=== PATIENT | female | born 1955 | race Caucasian/White ===

== ENCOUNTER → 2021-10-09 | Outpatient (CLI) | payer MEDICARE, MEDICAID ==
[2021-10-09 12:18] LABS: HEMATOCRIT 45.5 % (36.0-47.0); MEAN CORPUSCULAR HEMOGLOBIN 25.7 pg (27.0-33.0); MEAN CORPUSCULAR HGB CONC 30.8 g/dl (32.0-36.5); MEAN CORPUSCULAR VOLUME 83.6 fl (80.0-96.0); PLATELET COUNT, AUTOMATED 224 10^3/uL (150-450); RED BLOOD COUNT 5.44 10^6/uL (4.00-5.40); WHITE BLOOD COUNT 5.1 10^3/uL (4.0-10.0)
[2021-10-09 12:54] LABS: ALBUMIN 3.6 GM/DL (3.2-5.2); ALT/SGPT 27 U/L (12-78); BILIRUBIN,TOTAL 0.7 MG/DL (0.2-1.0); BLOOD UREA NITROGEN 12 MG/DL (7-18); CALCIUM LEVEL 9.8 MG/DL (8.8-10.2); CARBON DIOXIDE LEVEL 27 MEQ/L (21-32); CHLORIDE LEVEL 108 MEQ/L (98-107); CHOLESTEROL LEVEL 178 MG/DL (<200); CHOLESTEROL RISK RATIO 2.966 (<5); FREE T3 1.5 PG/ML (2.2-4.0); FREE T4 1.14 NG/DL (0.76-1.46); GLOMERULAR FILTRATION RATE > 60.0 (>45); GLUCOSE, FASTING 141 MG/DL (70-100); HDL CHOLESTEROL 60 MG/DL (>40); LDL CHOLESTEROL 88 MG/DL (<100); MAGNESIUM LEVEL 2.1 MG/DL (1.8-2.4); NON-HDL-C 118 MG/DL; SODIUM LEVEL 140 MEQ/L (136-145); TOTAL PROTEIN 7.6 GM/DL (6.4-8.2); TRIGLYCERIDES LEVEL 152 MG/DL (<150); URIC ACID 4.4 MG/DL (2.6-6.0)
[2021-10-09 12:58] LABS: MALB URINE SIEMENS 8.8 MG/L; MAU/CREAT RATIO 7.9 MCG/MG (0.0-30.0)
[2021-10-09 13:02] LABS: HEMOGLOBIN A1c 6.3 %
== END ==
LOC: M LAB 11:26
PROVIDERS: ATTEND Registered Nurse
DX: I10 Essential (primary) hypertension (principal); E03.9 Hypothyroidism, unspecified; E78.2 Mixed hyperlipidemia; E11.9 Type 2 diabetes mellitus without complications; K21.9 Gastro-esophageal reflux disease without esophagitis

== ENCOUNTER → 2022-05-16 | Outpatient (CLI) | payer MEDICARE, MEDICAID ==
[2022-05-16 19:26] LABS: BLOOD UREA NITROGEN 13 MG/DL (7-18); CREATININE FOR GFR 0.87 MG/DL (0.55-1.30); GLOMERULAR FILTRATION RATE > 60.0 (>45)
== END ==
LOC: M LAB 16:42
PROVIDERS: ATTEND Registered Nurse
DX: Z29.9 Encounter for prophylactic measures, unspecified (principal)

== ENCOUNTER → 2022-05-20 | Outpatient (CLI) | payer OTHER ==
[~2022-05-20] MED LIST: ISOVUE-370 76% 100ML VIAL As Ordered ONE
== END ==
LOC: M RAD 16:09
PROVIDERS: ATTEND Registered Nurse
DX: I80.02 Phlebitis and thrombophlebitis of superficial vessels of left lower extremity (principal)
CPT/HCPCS: 73701; Q9967

== ENCOUNTER → 2022-07-01 | Outpatient (CLI) | payer MEDICARE, OTHER ==
[2022-07-01 12:56] LABS: HEMATOCRIT 47.7 % (36.0-47.0); HEMOGLOBIN 14.6 g/dl (12.0-15.5); MEAN CORPUSCULAR HEMOGLOBIN 25.6 pg (27.0-33.0); MEAN CORPUSCULAR HGB CONC 30.6 g/dl (32.0-36.5); MEAN CORPUSCULAR VOLUME 83.5 fl (80.0-96.0); RED BLOOD COUNT 5.71 10^6/uL (4.00-5.40); WHITE BLOOD COUNT 6.1 10^3/uL (4.0-10.0)
[2022-07-01 13:47] LABS: ALBUMIN 3.7 GM/DL (3.2-5.2); ALT/SGPT 25 U/L (12-78); BLOOD UREA NITROGEN 11 MG/DL (7-18); CALCIUM LEVEL 9.7 MG/DL (8.8-10.2); CARBON DIOXIDE LEVEL 26 MEQ/L (21-32); CHLORIDE LEVEL 106 MEQ/L (98-107); CHOLESTEROL LEVEL 170 MG/DL (<200); CHOLESTEROL RISK RATIO 2.931 (<5); CREATININE FOR GFR 0.78 MG/DL (0.55-1.30); FREE T3 1.5 PG/ML (2.2-4.0); FREE T4 1.25 NG/DL (0.76-1.46); GLOMERULAR FILTRATION RATE > 60.0 (>45); GLUCOSE, FASTING 126 MG/DL (70-100); HDL CHOLESTEROL 58 MG/DL (>40); LDL CHOLESTEROL 74 MG/DL (<100); NON-HDL-C 112 MG/DL; NT-PRO BNP 177 PG/ML (<125); POTASSIUM SERUM 4.8 MEQ/L (3.5-5.1); SODIUM LEVEL 138 MEQ/L (136-145); TOTAL PROTEIN 7.2 GM/DL (6.4-8.2); TRIGLYCERIDES LEVEL 190 MG/DL (<150); URIC ACID 4.9 MG/DL (2.6-6.0)
[2022-07-01 20:10] LABS: HEMOGLOBIN A1c 6.7 %
== END ==
LOC: M LAB 11:23
PROVIDERS: ATTEND Registered Nurse
DX: E11.9 Type 2 diabetes mellitus without complications (principal); I10 Essential (primary) hypertension; R60.9 Edema, unspecified; E89.0 Postprocedural hypothyroidism; E78.2 Mixed hyperlipidemia

== ENCOUNTER → 2022-07-23 | Outpatient (CLI) | payer OTHER | LOC: M WHC 14:07 | PROVIDERS: ATTEND Registered Nurse | DX: Z13.820 Encounter for screening for osteoporosis (principal); M85.851 Other specified disorders of bone density and structure, right thigh; M81.0 Age-related osteoporosis without current pathological fracture ==

== ENCOUNTER → 2022-07-23 | Outpatient (CLI) | payer OTHER | LOC: M PLAIMG 14:50 | PROVIDERS: ATTEND Registered Nurse | DX: Z12.2 Encounter for screening for malignant neoplasm of respiratory organs (principal); Z87.891 Personal history of nicotine dependence ==

== ENCOUNTER → 2022-10-03 | Outpatient (CLI) | payer OTHER | LOC: M PLAIMG 13:29 | PROVIDERS: ATTEND Family Medicine | DX: F07.81 Postconcussional syndrome (principal) ==

== ENCOUNTER 2022-12-03 15:08 | Emergency (ER) | payer OTHER ==
[~2022-12-03] VITALS: Ht 165.1 cm; Wt 86.4 kg
[2022-12-03 15:09] VITALS: BP 136/64
[2022-12-03] MEDS ORDERED: SPIR-10 (16:00)
[2022-12-03] MEDS ORDERED: METF-838 (16:00)
[2022-12-03] MEDS ORDERED: PANT20TA6 (16:00)
[2022-12-03] MEDS ORDERED: ROSU10TA6 (16:00)
[2022-12-03] MEDS ORDERED: GABA-283 (16:00)
[2022-12-03] MEDS ORDERED: LEVO100T5 (16:00)
[2022-12-03] MEDS ORDERED: TOPI25TA10 (16:00)
[2022-12-03] MEDS ORDERED: BACL10TA2 (16:00)
[2022-12-03] MEDS ORDERED: LOSA25TA13 (16:00)
[2022-12-03] MEDS ORDERED: METO1TAB87 (16:00)
[2022-12-03] MEDS ORDERED: ZOLO100T (16:00)
[2022-12-03] MEDS ORDERED: FURO20TA2 (16:00)
[2022-12-03] MEDS ORDERED: AMOX875T2 PO (19:24)
[2022-12-03] MEDS ORDERED: AUGMENTIN 875 MG TAB PO ONE (19:25)
== END 2022-12-03 19:48 | disposition home or self-care (01) ==
LOC: M ED 15:08
DX: K08.89 Other specified disorders of teeth and supporting structures (principal); K02.9 Dental caries, unspecified; Z88.5 Allergy status to narcotic agent; Z79.2 Long term (current) use of antibiotics; Z79.4 Long term (current) use of insulin; Z79.811 Long term (current) use of aromatase inhibitors; Z79.02 Long term (current) use of antithrombotics/antiplatelets; Z79.899 Other long term (current) drug therapy

== ENCOUNTER → 2022-12-04 | Outpatient (CLI) | payer OTHER ==
[~2022-12-04] MED LIST changes: +AMOX875T2 PO; +BACL10TA2; +FURO20TA2; +GABA-283; -ISOVUE-370 76% 100ML VIAL As Ordered ONE; +LEVO100T5; +LOSA25TA13; +METF-838; +METO1TAB87; +PANT20TA6; +ROSU10TA6; +SPIR-10; +TOPI25TA10; +ZOLO100T
== END ==
LOC: M RAD 15:56
PROVIDERS: ATTEND Registered Nurse
DX: M47.9 Spondylosis, unspecified (principal); M85.872 Other specified disorders of bone density and structure, left ankle and foot; M85.852 Other specified disorders of bone density and structure, left thigh; M85.862 Other specified disorders of bone density and structure, left lower leg

== ENCOUNTER → 2023-02-03 | Outpatient (CLI) | payer OTHER ==
[~2023-02-03] MED LIST changes: +ISOVUE-300 61% 100ML VIAL As Ordered ONE; +LIDOCAINE 1% MDV 20ML VIAL As Ordered ONE
== END ==
LOC: M RAD 08:34
PROVIDERS: ATTEND Orthopaedic Surgery
DX: M17.12 Unilateral primary osteoarthritis, left knee (principal); M94.262 Chondromalacia, left knee
CPT/HCPCS: 27369; 73580; 73701; Q9967

== ENCOUNTER → 2023-06-02 | Outpatient (CLI) | payer OTHER ==
[~2023-06-02] MED LIST changes: -GABA-283; +GABA-284; -ISOVUE-300 61% 100ML VIAL As Ordered ONE; -LIDOCAINE 1% MDV 20ML VIAL As Ordered ONE
[2023-06-02 12:36] LABS: HEMATOCRIT 44.8 % (36.0-47.0); HEMOGLOBIN 13.7 g/dl (12.0-15.5); MEAN CORPUSCULAR HEMOGLOBIN 26.3 pg (27.0-33.0); MEAN CORPUSCULAR HGB CONC 30.6 g/dl (32.0-36.5); PLATELET COUNT, AUTOMATED 195 10^3/uL (150-450); RED BLOOD COUNT 5.21 10^6/uL (4.00-5.40); WHITE BLOOD COUNT 4.8 10^3/uL (4.0-10.0)
[2023-06-02 12:42] LABS: TOTAL T3 94.5 NG/DL (60.0-181.0)
[2023-06-02 12:43] LABS: THYROID STIMULATING HORMONE 0.417 uIU/ML (0.55-4.78)
[2023-06-02 12:45] LABS: FREE T4 1.37 NG/DL (0.89-1.76)
[2023-06-02 12:49] LABS: VITAMIN B12 LEVEL 133 PG/ML (211-911)
[2023-06-02 12:51] LABS: ALBUMIN 3.8 G/DL (3.2-5.2); ALKALINE PHOSPHATASE 84 U/L (46-116); ALT/SGPT 15 U/L (7.0-40); AST/SGOT 13 U/L (<34); BILIRUBIN,TOTAL 0.9 MG/DL (0.3-1.2); BLOOD UREA NITROGEN 13 MG/DL (9-23); CALCIUM LEVEL 9.9 MG/DL (8.3-10.6); CARBON DIOXIDE LEVEL 23 MMOL/L (20-31); CHLORIDE LEVEL 107 MMOL/L (98-107); CHOLESTEROL LEVEL 159 MG/DL (<200); CHOLESTEROL RISK RATIO 2.73 (<5); CREATININE FOR GFR 0.64 MG/DL (0.55-1.30); GLOMERULAR FILTRATION RATE > 60.0 (>45); GLUCOSE, FASTING 99 MG/DL (74-106); HDL CHOLESTEROL 58.1 MG/DL (>40); LDL CHOLESTEROL 71.1 MG/DL (<100); MAGNESIUM LEVEL 1.9 MG/DL (1.8-2.4); NON-HDL-C 100.9 MG/DL; POTASSIUM SERUM 4.9 MMOL/L (3.5-5.1); SODIUM LEVEL 138 MMOL/L (136-145); TOTAL PROTEIN 7.1 G/DL (5.7-8.2); TRIGLYCERIDES LEVEL 149 MG/DL (<150)
[2023-06-02 12:52] LABS: HEMOGLOBIN A1c 5.7 % (4.0-6.0)
[2023-06-02 12:56] LABS: URIC ACID 5.3 MG/DL (3.1-7.8)
== END ==
LOC: M LAB 11:23
PROVIDERS: ATTEND Family Medicine
DX: E89.0 Postprocedural hypothyroidism (principal); Z79.899 Other long term (current) drug therapy; I25.10 Atherosclerotic heart disease of native coronary artery without angina pectoris

== ENCOUNTER → 2023-06-02 | Outpatient (CLI) | payer OTHER ==
[2023-06-02 12:53] LABS: BLOOD UREA NITROGEN 13 MG/DL (9-23); CALCIUM LEVEL 9.9 MG/DL (8.3-10.6); CARBON DIOXIDE LEVEL 25 MMOL/L (20-31); CHLORIDE LEVEL 105 MMOL/L (98-107); CHOLESTEROL LEVEL 167 MG/DL (<200); CHOLESTEROL RISK RATIO 2.86 (<5); CREATININE FOR GFR 0.63 MG/DL (0.55-1.30); GLOMERULAR FILTRATION RATE > 60.0 (>45); GLUCOSE, FASTING 96 MG/DL (74-106); HDL CHOLESTEROL 58.3 MG/DL (>40); LDL CHOLESTEROL 76.1 MG/DL (<100); NON-HDL-C 108.7 MG/DL; POTASSIUM SERUM 4.8 MMOL/L (3.5-5.1); SODIUM LEVEL 139 MMOL/L (136-145); TRIGLYCERIDES LEVEL 163 MG/DL (<150)
== END ==
LOC: M LAB 11:20
PROVIDERS: ATTEND Nurse Practitioner Family
DX: I25.10 Atherosclerotic heart disease of native coronary artery without angina pectoris (principal)

== ENCOUNTER → 2023-06-04 | Outpatient (REF) | payer OTHER ==
[2023-06-04 14:20] LABS: CREATININE, URINE 42.2 MG/DL; MALB URINE SIEMENS < 3.0 MG/L; MAU/CREAT RATIO 7.1 MCG/MG (0.0-30.0)
== END ==
LOC: M LAB REF 12:51
PROVIDERS: ATTEND Family Medicine
DX: E89.0 Postprocedural hypothyroidism (principal); J44.9 Chronic obstructive pulmonary disease, unspecified; E11.9 Type 2 diabetes mellitus without complications; I50.20 Unspecified systolic (congestive) heart failure; E78.5 Hyperlipidemia, unspecified; I67.1 Cerebral aneurysm, nonruptured; I11.0 Hypertensive heart disease with heart failure

== ENCOUNTER → 2023-07-14 | Outpatient (REF) | payer OTHER, MEDICAID | LOC: M LAB REF 17:56 | PROVIDERS: ATTEND Otolaryngology | DX: K14.0 Glossitis (principal) ==

== ENCOUNTER 2023-09-07 11:10 | Inpatient (IN) | payer OTHER ==
[~2023-09-07] VITALS: Ht 167.6 cm; Wt 93.2 kg
[2023-09-07] VITALS (35 sets, daily range): BP systolic 76–157; BP diastolic 47–102; TEMP 96.8–98.7; O2SAT 96–100
[~2023-09-07 11:10] MED LIST changes: -BACL10TA2; +BACL10TA2 PO; -FURO20TA2; +FURO20TA2 PO; -GABA-284; +GABA-284 PO; -LEVO100T5; +LEVO100T5 PO; -LOSA25TA13; +LOSA25TA13 PO; -METF-838; +METF-838 PO; -METO1TAB87; +METO1TAB87 PO; -PANT20TA6; +PANT20TA6 PO; -SPIR-10; +SPIR-10 PO; -TOPI25TA10; +TOPI25TA10 PO; -ZOLO100T; +ZOLO100T PO
[2023-09-07] MEDS ORDERED: NS 2,760 ML in IV 1 EA IV ONE (11:45)
[2023-09-07] MEDS ORDERED: NOREPINEPHRINE 4MG IN D5 250ML 4 MG in IV 1 EA IV SCH ×2 (11:45)
[2023-09-07] MEDS ORDERED: ACETAMINOPHEN 650MG SUPP PR ONE (11:45)
[2023-09-07] MEDS ORDERED: PIPERACILLIN/TAZOBACTAM SOD 4.5 GM in D5W MINI-BAG PLUS 50 ML IV ONE (11:45)
[2023-09-07 11:58] LABS: BASO % 0.3 % (0.0-1.0); EOS % 0.1 % (0.0-3.0); HEMOGLOBIN 14.2 g/dl (12.0-15.5); LYMPH # 0.6 10^3/uL (1.5-5.0); LYMPH % 6.1 % (24.0-44.0); MEAN CORPUSCULAR HEMOGLOBIN 26.9 pg (27.0-33.0); MEAN CORPUSCULAR HGB CONC 32.3 g/dl (32.0-36.5); MEAN CORPUSCULAR VOLUME 83.3 fl (80.0-96.0); MONO # 0.6 10^3/uL (0.0-0.8); MONO % 5.7 % (2.0-8.0); NEUTROPHILS # 8.5 10^3/uL (1.5-8.5); NEUTROPHILS % 87.3 % (36.0-66.0); PLATELET COUNT, AUTOMATED 130 10^3/uL (150-450); RED BLOOD COUNT 5.28 10^6/uL (4.00-5.40); WHITE BLOOD COUNT 9.7 10^3/uL (4.0-10.0)
[2023-09-07 12:15] LABS: ABG BASE EXCESS -5.6 (-2.0-2.0); ABG HCO3 18.6 MMOL/L (22.0-26.0); ABG PARTIAL PRESSURE CO2 32.7 mmHg (35.0-45.0); ABG PARTIAL PRESSURE O2 75.8 mmHg (75.0-100.0); ABG STANDARD HCO3 19.8 MMOL/L. (22.0-26.0); ABG TOTAL CO2 19.6 MMOL/L (23.0-31.0); ABG pH (ARTERIAL) 7.372 UNITS (7.350-7.450)
[2023-09-07 12:26] LABS: RSV AMPLIFICATION NEGATIVE (NEGATIVE)
[2023-09-07 12:54] LABS: APPEARANCE, URINE CLOUDY (CLEAR); BACTERIA, URINE AUTO 1+ (NEGATIVE); BILIRUBIN, URINE AUTO NEGATIVE (NEGATIVE); BLOOD, URINE BLOOD 2+ (NEGATIVE); COLOR, URINE YELLOW (YELLOW); GLUCOSE, URINE (UA) AUTO NEGATIVE (NEGATIVE); KETONE, URINE AUTO NEGATIVE (NEGATIVE); LEUKOCYTE ESTERASE, URINE AUTO 3+ (NEGATIVE); MUCUS, URINE SMALL (NEGATIVE); NITRITE, URINE AUTO NEGATIVE (NEGATIVE); PROTEIN, URINE AUTO 2+ mg/dL (NEGATIVE); RBC, URINE AUTO 37 /HPF (0-3); SPECIFIC GRAVITY URINE AUTO 1.009 (1.002-1.035); SQUAMOUS EPITHELIAL CELL UR AU 4 /HPF (0-6); UROBILINOGEN, URINE AUTO 0.2 mg/dL (0.0-2.0); WBC, URINE AUTO TNTC /HPF (0-3)
[2023-09-07] MEDS ORDERED: ASPIRIN 81MG CHEW TABLET PO ONE (13:00)
[2023-09-07] MEDS ORDERED: NITROGLYCERIN 2% OINT 1 GM *U/D* PKT TOP ONE (13:35)
[2023-09-07] MEDS ORDERED: HEPARIN DRIP 25,000 UNITS in IV 1 EA IV SCH (13:55)
[2023-09-07] MEDS ORDERED: HEPARIN SOD (PORCINE) 5000UNITS/ML 1ML VIAL/SYRINGE IV ONE (13:55)
[2023-09-07 14:24] LABS: INR 1.36; PARTIAL THROMBOPLASTIN TIME 32.7 SECONDS (24.8-34.2); PROTHROMBIN TIME 16.3 SECONDS (12.5-14.5)
[2023-09-07 14:38] LABS: CK-MB VALUE MASS 12.4 NG/ML (<3.6)
[2023-09-07 14:41] LABS: ALBUMIN 2.5 G/DL (3.2-5.2); BILIRUBIN,DIRECT 0.9 MG/DL (<0.4); BILIRUBIN,TOTAL 1.3 MG/DL (0.3-1.2); CALCIUM LEVEL 7.5 MG/DL (8.3-10.6); CREATININE FOR GFR 1.61 MG/DL (0.55-1.30); GLOMERULAR FILTRATION RATE 34.1 (>45); MB/CK RELATIVE INDEX 5.63 (< OR =4); POTASSIUM SERUM 4.5 MMOL/L (3.5-5.1); TOTAL PROTEIN 5.5 G/DL (5.7-8.2)
[2023-09-07 14:42] LABS: THYROID STIMULATING HORMONE 0.595 uIU/ML (0.55-4.78)
[2023-09-07] MEDS: LR 1,000 ML IV SCH ×2 (14:42→22:32)
[2023-09-07 14:46] LABS: PROCALCITONIN 4.16 ng/ml
[2023-09-07] MEDS: NOREPINEPHRINE 4MG IN D5 250ML 4 MG in IV 1 EA IV SCH ×6 (15:13→20:11)
[2023-09-07] MEDS ORDERED: HYDROCORTISONE 100MG/2ML VIAL IV ONE (16:00)
[2023-09-07] MEDS ORDERED: HEPARIN SOD (PORCINE) 5000UNITS/ML 1ML VIAL/SYRINGE IV PRN (16:20)
[2023-09-07] MEDS ORDERED: VANCOMYCIN HCL 1,000 MG, VIAL MATE ADAPTER 1 EACH in D5W 250 ML IV SCH (17:00)
[2023-09-07] MEDS: VASOPRESSIN INJ 20 UNITS in NS 500 ML IV SCH (17:44)
[2023-09-07] MEDS: PIPERACILLIN/TAZOBACTAM SOD 4.5 GM in D5W MINI-BAG PLUS 50 ML IV SCH (17:49)
[2023-09-07] MEDS: IPRATROPIUM 0.5MG/ALBUTEROL 2.5MG INH SOL UD 3ML (DUONEB) NEB SCH ×3 (17:57→23:28)
[2023-09-07 18:33] LABS: CK-MB VALUE MASS 27.9 NG/ML (<3.6)
[2023-09-07 18:38] LABS: MB/CK RELATIVE INDEX 7.11 (< OR =4)
[2023-09-07] MEDS ORDERED: VANCOMYCIN HCL 750 MG, VIAL MATE ADAPTER 1 EACH in D5W 250 ML IV ONE (20:00)
[2023-09-07] MEDS ORDERED: PROA1AER2 INH (20:01)
[2023-09-07] MEDS ORDERED: TRAM37.53 PO (20:01)
[2023-09-07] MEDS ORDERED: ROSU20TA61 PO (20:01)
[2023-09-07] MEDS ORDERED: GLUCAGON INJ 1MG VIAL SC PRN (21:00)
[2023-09-07] MEDS ORDERED: DEXTROSE 50% 50ML SYRINGE IV PRN (21:00)
[2023-09-07] MEDS ORDERED: GLUCOSE 4GM CHEW TABLET PO PRN (21:00)
[2023-09-07] MEDS ORDERED: HOME MED LIST COMPLETE! XX SCH (21:55)
[2023-09-08] VITALS (97 sets, daily range): BP systolic 80–141; BP diastolic 50–78; PULSE 116; TEMP 96.5–101.4; O2SAT 75–100
[2023-09-08] MEDS: PIPERACILLIN/TAZOBACTAM SOD 4.5 GM in D5W MINI-BAG PLUS 50 ML IV SCH ×4 (00:25→17:04)
[2023-09-08] MEDS: VASOPRESSIN INJ 20 UNITS in NS 500 ML IV SCH ×4 (01:31→18:27)
[2023-09-08] MEDS: IPRATROPIUM 0.5MG/ALBUTEROL 2.5MG INH SOL UD 3ML (DUONEB) NEB SCH ×6 (03:23→23:31)
[2023-09-08 04:26] LABS: BASO % 0.1 % (0.0-1.0); HEMATOCRIT 37.6 % (36.0-47.0); LYMPH # 0.6 10^3/uL (1.5-5.0); MEAN CORPUSCULAR HGB CONC 32.2 g/dl (32.0-36.5); MEAN CORPUSCULAR VOLUME 83.9 fl (80.0-96.0); MONO # 1.1 10^3/uL (0.0-0.8); NEUTROPHILS % 90.4 % (36.0-66.0); PLATELET COUNT, AUTOMATED 189 10^3/uL (150-450); RED BLOOD COUNT 4.48 10^6/uL (4.00-5.40); WHITE BLOOD COUNT 18.8 10^3/uL (4.0-10.0)
[2023-09-08 04:28] LABS: HEMOGLOBIN 12.1 g/dl (12.0-15.5)
[2023-09-08 04:54] LABS: CK-MB VALUE MASS 82.7 NG/ML (<3.6)
[2023-09-08 04:57] LABS: ALBUMIN 2.5 G/DL (3.2-5.2); BILIRUBIN,TOTAL 0.9 MG/DL (0.3-1.2); CALCIUM LEVEL 7.8 MG/DL (8.3-10.6); CREATININE FOR GFR 1.06 MG/DL (0.55-1.30); GLOMERULAR FILTRATION RATE 55.2 (>45); MAGNESIUM LEVEL 1.6 MG/DL (1.8-2.4); POTASSIUM SERUM 4.6 MMOL/L (3.5-5.1); TOTAL PROTEIN 5.7 G/DL (5.7-8.2)
[2023-09-08 04:59] LABS: MB/CK RELATIVE INDEX 8.58 (< OR =4)
[2023-09-08] MEDS: BUDESONIDE 0.5 MG/2 ML INHALATION SUSPENSION INH SCH ×2 (08:00→20:12)
[2023-09-08] MEDS: PANTOPRAZOLE 40MG VIAL IV SCH (08:49)
[2023-09-08] MEDS: ASPIRIN 81MG ENTERIC TABLET PO SCH (08:49)
[2023-09-08] MEDS: LR 1,000 ML IV SCH (08:50)
[2023-09-08] MEDS: VANCOMYCIN HCL 750 MG, VIAL MATE ADAPTER 1 EACH in D5W 250 ML IV SCH ×2 (08:52→20:32)
[2023-09-08] MEDS: HEPARIN DRIP 25,000 UNITS in IV 1 EA IV SCH (12:48)
[2023-09-08 14:14] LABS: HEMATOCRIT 34.2 % (36.0-47.0); HEMOGLOBIN 11.2 g/dl (12.0-15.5); MEAN CORPUSCULAR HEMOGLOBIN 27.1 pg (27.0-33.0); MEAN CORPUSCULAR HGB CONC 32.7 g/dl (32.0-36.5); MEAN CORPUSCULAR VOLUME 82.6 fl (80.0-96.0); PLATELET COUNT, AUTOMATED 127 10^3/uL (150-450); RED BLOOD COUNT 4.14 10^6/uL (4.00-5.40); WHITE BLOOD COUNT 10.2 10^3/uL (4.0-10.0)
[2023-09-08 14:33] LABS: MB/CK RELATIVE INDEX 7.49 (< OR =4)
[2023-09-08] MEDS: ACETAMINOPHEN TAB 650MG DOSE (2X325MG) PO PRN (16:37)
[2023-09-08] MEDS ORDERED: NITROGLYCERIN 0.4MG SUBL TABLET SL PRN (16:45)
[2023-09-08] MEDS ORDERED: MORPHINE 2 MG/ML 1ML VIAL IV ONE (16:55)
[2023-09-08 17:28] LABS: BASO % 0.2 % (0.0-1.0); HEMATOCRIT 35.4 % (36.0-47.0); HEMOGLOBIN 11.3 g/dl (12.0-15.5); LYMPH # 0.6 10^3/uL (1.5-5.0); LYMPH % 5.5 % (24.0-44.0); MEAN CORPUSCULAR HEMOGLOBIN 26.3 pg (27.0-33.0); MEAN CORPUSCULAR HGB CONC 31.9 g/dl (32.0-36.5); MEAN CORPUSCULAR VOLUME 82.3 fl (80.0-96.0); MONO # 0.8 10^3/uL (0.0-0.8); MONO % 7.3 % (2.0-8.0); NEUTROPHILS # 9.9 10^3/uL (1.5-8.5); NEUTROPHILS % 86.4 % (36.0-66.0); PLATELET COUNT, AUTOMATED 133 10^3/uL (150-450); WHITE BLOOD COUNT 11.5 10^3/uL (4.0-10.0)
[2023-09-08 18:09] LABS: ALBUMIN 2.3 G/DL (3.2-5.2); ALKALINE PHOSPHATASE 78 U/L (46-116); ALT/SGPT 42 U/L (7.0-40); AST/SGOT 131 U/L (<34); BILIRUBIN,TOTAL 0.7 MG/DL (0.3-1.2); BLOOD UREA NITROGEN 17 MG/DL (9-23); CALCIUM LEVEL 7.6 MG/DL (8.3-10.6); CARBON DIOXIDE LEVEL 19 MMOL/L (20-31); CHLORIDE LEVEL 102 MMOL/L (98-107); CPK CREATINE PHOSPHOKINASE 513 U/L (34-145); CREATININE FOR GFR 0.85 MG/DL (0.55-1.30); GLOMERULAR FILTRATION RATE > 60.0 (>45); GLUCOSE, FASTING 193 MG/DL (74-106); MB/CK RELATIVE INDEX 5.45 (< OR =4); POTASSIUM SERUM 3.8 MMOL/L (3.5-5.1); SODIUM LEVEL 133 MMOL/L (136-145); TOTAL PROTEIN 5.4 G/DL (5.7-8.2)
[2023-09-08] MEDS ORDERED: MAG SULF 1GM/100ML (MAG RUN) 1 GM in IV 1 EA IV SCH (19:00)
[2023-09-09] VITALS (94 sets, daily range): BP systolic 89–150; BP diastolic 46–75; PULSE 95; TEMP 97–101.9; O2SAT 94–100
[2023-09-09] MEDS: PIPERACILLIN/TAZOBACTAM SOD 4.5 GM in D5W MINI-BAG PLUS 50 ML IV SCH ×2 (00:08→05:37)
[2023-09-09] MEDS: NOREPINEPHRINE 4MG IN D5 250ML 4 MG in IV 1 EA IV SCH ×4 (00:09→13:09)
[2023-09-09] MEDS: VASOPRESSIN INJ 20 UNITS in NS 500 ML IV SCH ×2 (03:12→11:30)
[2023-09-09] MEDS: IPRATROPIUM 0.5MG/ALBUTEROL 2.5MG INH SOL UD 3ML (DUONEB) NEB SCH ×5 (03:16→20:26)
[2023-09-09 06:08] LABS: BASO % 0.2 % (0.0-1.0); HEMATOCRIT 33.5 % (36.0-47.0); HEMOGLOBIN 10.7 g/dl (12.0-15.5); LYMPH # 0.9 10^3/uL (1.5-5.0); LYMPH % 6.5 % (24.0-44.0); MEAN CORPUSCULAR HEMOGLOBIN 26.4 pg (27.0-33.0); MEAN CORPUSCULAR HGB CONC 31.9 g/dl (32.0-36.5); MEAN CORPUSCULAR VOLUME 82.7 fl (80.0-96.0); MONO % 7.5 % (2.0-8.0); NEUTROPHILS # 11.5 10^3/uL (1.5-8.5); NEUTROPHILS % 85.1 % (36.0-66.0); PLATELET COUNT, AUTOMATED 159 10^3/uL (150-450); RED BLOOD COUNT 4.05 10^6/uL (4.00-5.40); WHITE BLOOD COUNT 13.6 10^3/uL (4.0-10.0)
[2023-09-09 06:37] LABS: CPK CREATINE PHOSPHOKINASE 333 U/L (34-145)
[2023-09-09 06:38] LABS: ALBUMIN 2.1 G/DL (3.2-5.2); ALKALINE PHOSPHATASE 79 U/L (46-116); ALT/SGPT 34 U/L (7.0-40); AST/SGOT 85 U/L (<34); BILIRUBIN,TOTAL 0.9 MG/DL (0.3-1.2); BLOOD UREA NITROGEN 11 MG/DL (9-23); CALCIUM LEVEL 7.5 MG/DL (8.3-10.6); CARBON DIOXIDE LEVEL 20 MMOL/L (20-31); CHLORIDE LEVEL 98 MMOL/L (98-107); CK-MB VALUE MASS 15.3 NG/ML (<3.6); CREATININE FOR GFR 0.73 MG/DL (0.55-1.30); GLOMERULAR FILTRATION RATE > 60.0 (>45); GLUCOSE, FASTING 181 MG/DL (74-106); MAGNESIUM LEVEL 1.6 MG/DL (1.8-2.4); MB/CK RELATIVE INDEX 4.59 (< OR =4); POTASSIUM SERUM 3.7 MMOL/L (3.5-5.1); SODIUM LEVEL 127 MMOL/L (136-145); TOTAL PROTEIN 5.2 G/DL (5.7-8.2)
[2023-09-09] MEDS ORDERED: MAG SULF 1GM/100ML (MAG RUN) 1 GM in IV 1 EA IV ONE (08:00)
[2023-09-09] MEDS: ACETAMINOPHEN TAB 650MG DOSE (2X325MG) PO PRN (08:40)
[2023-09-09] MEDS: ASPIRIN 81MG ENTERIC TABLET PO SCH (08:41)
[2023-09-09] MEDS: VANCOMYCIN HCL 750 MG, VIAL MATE ADAPTER 1 EACH in D5W 250 ML IV SCH (08:41)
[2023-09-09] MEDS: PANTOPRAZOLE 40MG VIAL IV SCH (08:41)
[2023-09-09] MEDS: BUDESONIDE 0.5 MG/2 ML INHALATION SUSPENSION INH SCH ×2 (09:02→20:26)
[2023-09-09] MEDS: ROSUVASTATIN 10 MG TAB (CRESTOR) PO SCH (12:44)
[2023-09-09] MEDS: cefTRIAXone SOD 1 GM in D5W MINI-BAG PLUS 50 ML IV SCH (12:45)
[2023-09-09] MEDS: CLOPIDOGREL 75 MG TAB PO SCH (12:45)
[2023-09-09] MEDS: HEPARIN DRIP 25,000 UNITS in IV 1 EA IV SCH (13:09)
[2023-09-10] VITALS (76 sets, daily range): BP systolic 79–116; BP diastolic 44–76; TEMP 97.1–99.1; O2SAT 98–100
[2023-09-10] MEDS: IPRATROPIUM 0.5MG/ALBUTEROL 2.5MG INH SOL UD 3ML (DUONEB) NEB SCH ×4 (00:19→12:00)
[2023-09-10] MEDS: ACETAMINOPHEN TAB 650MG DOSE (2X325MG) PO PRN (00:55)
[2023-09-10 04:55] LABS: BASO % 0.3 % (0.0-1.0); EOS % 0.1 % (0.0-3.0); HEMATOCRIT 33.3 % (36.0-47.0); HEMOGLOBIN 10.7 g/dl (12.0-15.5); LYMPH # 0.9 10^3/uL (1.5-5.0); LYMPH % 8.5 % (24.0-44.0); MEAN CORPUSCULAR HEMOGLOBIN 26.5 pg (27.0-33.0); MEAN CORPUSCULAR HGB CONC 32.1 g/dl (32.0-36.5); MEAN CORPUSCULAR VOLUME 82.4 fl (80.0-96.0); NEUTROPHILS # 8.9 10^3/uL (1.5-8.5); NEUTROPHILS % 81.4 % (36.0-66.0); PLATELET COUNT, AUTOMATED 188 10^3/uL (150-450); RED BLOOD COUNT 4.04 10^6/uL (4.00-5.40); WHITE BLOOD COUNT 10.9 10^3/uL (4.0-10.0)
[2023-09-10 05:17] LABS: CPK CREATINE PHOSPHOKINASE 141 U/L (34-145)
[2023-09-10 05:18] LABS: ALKALINE PHOSPHATASE 83 U/L (46-116); ALT/SGPT 26 U/L (7.0-40); AST/SGOT 50 U/L (<34); BILIRUBIN,TOTAL 0.9 MG/DL (0.3-1.2); BLOOD UREA NITROGEN 8 MG/DL (9-23); CALCIUM LEVEL 8.2 MG/DL (8.3-10.6); CARBON DIOXIDE LEVEL 25 MMOL/L (20-31); CHLORIDE LEVEL 108 MMOL/L (98-107); CK-MB VALUE MASS 5.6 NG/ML (<3.6); CREATININE FOR GFR 0.72 MG/DL (0.55-1.30); GLOMERULAR FILTRATION RATE > 60.0 (>45); GLUCOSE, FASTING 146 MG/DL (74-106); MB/CK RELATIVE INDEX 3.97 (< OR =4); POTASSIUM SERUM 3.2 MMOL/L (3.5-5.1); SODIUM LEVEL 141 MMOL/L (136-145); TOTAL PROTEIN 5.2 G/DL (5.7-8.2)
[2023-09-10] MEDS ORDERED: POTASSIUM CHLORIDE 10MEQ SR TABLET PO ONE (07:00)
[2023-09-10] MEDS: BUDESONIDE 0.5 MG/2 ML INHALATION SUSPENSION INH SCH (07:50)
[2023-09-10] MEDS: CLOPIDOGREL 75 MG TAB PO SCH (08:03)
[2023-09-10] MEDS: ASPIRIN 81MG ENTERIC TABLET PO SCH (08:03)
[2023-09-10] MEDS: PANTOPRAZOLE 40MG VIAL IV SCH (08:03)
[2023-09-10] MEDS: ROSUVASTATIN 10 MG TAB (CRESTOR) PO SCH (08:04)
[2023-09-10] MEDS: HEPARIN DRIP 25,000 UNITS in IV 1 EA IV SCH (08:06)
[2023-09-10] MEDS ORDERED: LACTATED RINGER'S 1000 ML IV ONE (11:40)
[2023-09-10] MEDS: cefTRIAXone SOD 1 GM in D5W MINI-BAG PLUS 50 ML IV SCH (12:08)
[2023-09-10] MEDS ORDERED: IPRATROPIUM 0.5MG/ALBUTEROL 2.5MG INH SOL UD 3ML (DUONEB) NEB PRN (13:15)
[2023-09-11] VITALS (11 sets, daily range): BP systolic 94–114; BP diastolic 51–59; TEMP 96.9–97; O2SAT 98–99
[2023-09-11] MEDS: HEPARIN DRIP 25,000 UNITS in IV 1 EA IV SCH ×2 (02:50→12:35)
[2023-09-11 05:12] LABS: HEMATOCRIT 31.3 % (36.0-47.0); HEMOGLOBIN 10.1 g/dl (12.0-15.5); MEAN CORPUSCULAR HEMOGLOBIN 26.9 pg (27.0-33.0); MEAN CORPUSCULAR HGB CONC 32.3 g/dl (32.0-36.5); MEAN CORPUSCULAR VOLUME 83.5 fl (80.0-96.0); PLATELET COUNT, AUTOMATED 184 10^3/uL (150-450); RED BLOOD COUNT 3.75 10^6/uL (4.00-5.40); WHITE BLOOD COUNT 8.8 10^3/uL (4.0-10.0)
[2023-09-11 05:23] LABS: INR 1.18; PROTHROMBIN TIME 14.7 SECONDS (12.5-14.5)
[2023-09-11 05:25] LABS: PARTIAL THROMBOPLASTIN TIME 82.4 SECONDS (24.8-34.2)
[2023-09-11 07:34] LABS: BLOOD UREA NITROGEN 7 MG/DL (9-23); CALCIUM LEVEL 8.1 MG/DL (8.3-10.6); CARBON DIOXIDE LEVEL 23 MMOL/L (20-31); CHLORIDE LEVEL 111 MMOL/L (98-107); CREATININE FOR GFR 0.66 MG/DL (0.55-1.30); GLOMERULAR FILTRATION RATE > 60.0 (>45); GLUCOSE, FASTING 110 MG/DL (74-106); POTASSIUM SERUM 3.7 MMOL/L (3.5-5.1); SODIUM LEVEL 144 MMOL/L (136-145)
[2023-09-11] MEDS: ROSUVASTATIN 10 MG TAB (CRESTOR) PO SCH (08:10)
[2023-09-11] MEDS: CLOPIDOGREL 75 MG TAB PO SCH (08:10)
[2023-09-11] MEDS: PANTOPRAZOLE 40MG VIAL IV SCH (08:10)
[2023-09-11] MEDS: ASPIRIN 81MG ENTERIC TABLET PO SCH (08:10)
[2023-09-11] MEDS: cefTRIAXone SOD 1 GM in D5W MINI-BAG PLUS 50 ML IV SCH (12:04)
[2023-09-12 15:15] VITALS: BP 122/62; TEMP 97; O2SAT 100
[2023-09-12] MEDS ORDERED: ONDANSETRON 4MG 2ML VIAL IV PRN (15:20)
[2023-09-12] MEDS ORDERED: MOM 30ML SUSPENSION UDC PO PRN (15:20)
[2023-09-12] MEDS ORDERED: BISACODYL 5MG TAB PO PRN (15:20)
[2023-09-12] MEDS ORDERED: MIRALAX *UNIT DOSE* 17GM PACKET PO PRN (15:20)
[2023-09-12] MEDS ORDERED: SENOKOT S TAB PO PRN (15:20)
[2023-09-12] MEDS ORDERED: HEPARIN SOD (PORCINE) 5000UNITS/ML 1ML VIAL/SYRINGE IV PRN (16:35)
[2023-09-12] MEDS ORDERED: HEPARIN SOD (PORCINE) 5000UNITS/ML 1ML VIAL/SYRINGE IV ONE (17:00)
[2023-09-12] MEDS ORDERED: HEPARIN DRIP 25,000 UNITS in IV 1 EA IV SCH (17:00)
[2023-09-12] MEDS ORDERED: cefTRIAXone SOD 1 GM in D5W MINI-BAG PLUS 50 ML IV SCH (17:00)
[2023-09-12 17:29] LABS: HEMATOCRIT 34.4 % (36.0-47.0); HEMOGLOBIN 10.7 g/dl (12.0-15.5); MEAN CORPUSCULAR HEMOGLOBIN 26.4 pg (27.0-33.0); MEAN CORPUSCULAR HGB CONC 31.1 g/dl (32.0-36.5); MEAN CORPUSCULAR VOLUME 84.7 fl (80.0-96.0); PLATELET COUNT, AUTOMATED 258 10^3/uL (150-450); RED BLOOD COUNT 4.06 10^6/uL (4.00-5.40); WHITE BLOOD COUNT 8.9 10^3/uL (4.0-10.0)
[2023-09-12 17:55] LABS: CPK CREATINE PHOSPHOKINASE 66 U/L (34-145)
[2023-09-12] MEDS ORDERED: LACTOBACILLUS ACIDOPHILUS CAP (BACID) PO SCH (18:00)
[2023-09-12 18:07] LABS: PROCALCITONIN 0.24 ng/ml
[2023-09-12 18:09] LABS: ALBUMIN 2.3 G/DL (3.2-5.2); ALKALINE PHOSPHATASE 86 U/L (46-116); ALT/SGPT 66 U/L (7.0-40); AST/SGOT 87 U/L (<34); BILIRUBIN,TOTAL 0.6 MG/DL (0.3-1.2); BLOOD UREA NITROGEN 7 MG/DL (9-23); CALCIUM LEVEL 8.5 MG/DL (8.3-10.6); CARBON DIOXIDE LEVEL 22 MMOL/L (20-31); CHLORIDE LEVEL 107 MMOL/L (98-107); CK-MB VALUE MASS 1.2 NG/ML (<3.6); CREATININE FOR GFR 0.59 MG/DL (0.55-1.30); GLOMERULAR FILTRATION RATE > 60.0 (>45); GLUCOSE, FASTING 95 MG/DL (74-106); MB/CK RELATIVE INDEX 1.81 (< OR =4); POTASSIUM SERUM 3.7 MMOL/L (3.5-5.1); SODIUM LEVEL 139 MMOL/L (136-145)
[2023-09-12 18:32] LABS: BASOPHILS 1 % (0-1); EOSINOPHILS 4 % (0-3); LYMPHOCYTES 13 % (16-44); METAMYELOCYTES 3 % (0-0); MONOCYTES 4 % (0-5); NEUTROPHILS 74 % (28-66); PLATELET ESTIMATE NORMAL (NORMAL)
[2023-09-12] MEDS: ACETAMINOPHEN TAB 650MG DOSE (2X325MG) PO PRN (18:33)
[2023-09-12 19:06] LABS: ERYTHROCYTE SEDIMENTATION RATE > 130 mm/hr (0-30)
[2023-09-12 19:38] VITALS: BP 101/57; TEMP 97.5; O2SAT 99
[2023-09-12] MEDS: ATORVASTATIN 20 MG TAB PO SCH (20:48)
[2023-09-12] MEDS ORDERED: MORPHINE 2 MG/ML 1ML VIAL IV ONE (21:00)
[2023-09-12 23:19] VITALS: BP 124/58; TEMP 97.7; O2SAT 96
[2023-09-13 03:13] VITALS: BP 124/65; TEMP 97; O2SAT 96
[2023-09-13 05:32] LABS: HEMATOCRIT 33.7 % (36.0-47.0); HEMOGLOBIN 10.6 g/dl (12.0-15.5); MEAN CORPUSCULAR HEMOGLOBIN 26.8 pg (27.0-33.0); MEAN CORPUSCULAR HGB CONC 31.5 g/dl (32.0-36.5); MEAN CORPUSCULAR VOLUME 85.1 fl (80.0-96.0); PLATELET COUNT, AUTOMATED 273 10^3/uL (150-450); RED BLOOD COUNT 3.96 10^6/uL (4.00-5.40); WHITE BLOOD COUNT 8.9 10^3/uL (4.0-10.0)
[2023-09-13 05:53] LABS: BLOOD UREA NITROGEN 6 MG/DL (9-23); CALCIUM LEVEL 8.2 MG/DL (8.3-10.6); CARBON DIOXIDE LEVEL 26 MMOL/L (20-31); CHLORIDE LEVEL 105 MMOL/L (98-107); CHOLESTEROL LEVEL 114 MG/DL (<200); CHOLESTEROL RISK RATIO 3.81 (<5); CREATININE FOR GFR 0.69 MG/DL (0.55-1.30); GLOMERULAR FILTRATION RATE > 60.0 (>45); GLUCOSE, FASTING 105 MG/DL (74-106); HDL CHOLESTEROL 29.9 MG/DL (>40); LDL CHOLESTEROL 62.1 MG/DL (<100); NON-HDL-C 84.1 MG/DL; POTASSIUM SERUM 3.5 MMOL/L (3.5-5.1); SODIUM LEVEL 139 MMOL/L (136-145); TRIGLYCERIDES LEVEL 110 MG/DL (<150)
[2023-09-13 06:07] LABS: ATYPICAL LYMPH 2 % (0-5); BASOPHILS 1 % (0-1); EOSINOPHILS 7 % (0-3); LYMPHOCYTES 9 % (16-44); MONOCYTES 5 % (0-5); NEUTROPHILS 74 % (28-66); PLATELET ESTIMATE NORMAL (NORMAL)
[2023-09-13 06:08] LABS: ANISOCYTOSIS 1+
[2023-09-13 06:09] LABS: HEMOGLOBIN A1c 5.5 % (4.0-6.0)
[2023-09-13 08:19] VITALS: BP 115/64; TEMP 96.9; O2SAT 98
[2023-09-13 08:40] LABS: INR 1.08; PROTHROMBIN TIME 13.7 SECONDS (12.5-14.5)
[2023-09-13] MEDS: AUGMENTIN 875 MG TAB PO SCH ×2 (09:28→20:01)
[2023-09-13] MEDS: LACTOBACILLUS ACIDOPHILUS CAP (BACID) PO SCH ×4 (09:28→20:01)
[2023-09-13] MEDS: ASPIRIN 81MG CHEW TABLET PO SCH (09:28)
[2023-09-13] MEDS: CLOPIDOGREL 75 MG TAB PO SCH (09:28)
[2023-09-13 10:50] LABS: CK-MB VALUE MASS 1.3 NG/ML (<3.6)
[2023-09-13 10:52] LABS: CPK CREATINE PHOSPHOKINASE 55 U/L (34-145); MB/CK RELATIVE INDEX 2.36 (< OR =4)
[2023-09-13 16:16] VITALS: BP 108/58; TEMP 96.8; O2SAT 97
[2023-09-13 19:32] VITALS: BP 96/52; TEMP 97.4; O2SAT 99
[2023-09-13] MEDS: ATORVASTATIN 20 MG TAB PO SCH (20:01)
[2023-09-14 03:24] VITALS: BP 122/65; TEMP 97.7; O2SAT 99
[2023-09-14 05:33] LABS: HEMATOCRIT 32.4 % (36.0-47.0); HEMOGLOBIN 10.2 g/dl (12.0-15.5); MEAN CORPUSCULAR HEMOGLOBIN 26.3 pg (27.0-33.0); MEAN CORPUSCULAR HGB CONC 31.5 g/dl (32.0-36.5); MEAN CORPUSCULAR VOLUME 83.5 fl (80.0-96.0); PLATELET COUNT, AUTOMATED 316 10^3/uL (150-450); RED BLOOD COUNT 3.88 10^6/uL (4.00-5.40)
[2023-09-14 06:06] LABS: BLOOD UREA NITROGEN 6 MG/DL (9-23); CALCIUM LEVEL 8.1 MG/DL (8.3-10.6); CARBON DIOXIDE LEVEL 24 MMOL/L (20-31); CHLORIDE LEVEL 108 MMOL/L (98-107); CREATININE FOR GFR 0.59 MG/DL (0.55-1.30); GLOMERULAR FILTRATION RATE > 60.0 (>45); GLUCOSE, FASTING 109 MG/DL (74-106); POTASSIUM SERUM 3.9 MMOL/L (3.5-5.1); SODIUM LEVEL 142 MMOL/L (136-145)
[2023-09-14 06:27] LABS: ANISOCYTOSIS 1+; ATYPICAL LYMPH 6 % (0-5); BLAST CELLS 1 % (0-0); EOSINOPHILS 4 % (0-3); LYMPHOCYTES 16 % (16-44); MONOCYTES 4 % (0-5); NEUTROPHILS 66 % (28-66); PLATELET ESTIMATE NORMAL (NORMAL)
[2023-09-14 06:28] LABS: MICROCYTOSIS 1+; OVALOCYTES 1+; POIKILOCYTOSIS 1+
[2023-09-14 07:52] VITALS: BP 110/68; TEMP 97.8; O2SAT 100
[2023-09-14] MEDS: LACTOBACILLUS ACIDOPHILUS CAP (BACID) PO SCH ×4 (08:02→21:09)
[2023-09-14] MEDS: ACETAMINOPHEN TAB 650MG DOSE (2X325MG) PO PRN ×2 (08:02→21:09)
[2023-09-14] MEDS: CLOPIDOGREL 75 MG TAB PO SCH (08:02)
[2023-09-14] MEDS: ASPIRIN 81MG CHEW TABLET PO SCH (08:02)
[2023-09-14] MEDS: AUGMENTIN 875 MG TAB PO SCH ×2 (08:02→21:09)
[2023-09-14] MEDS: ENOXAPARIN 40MG/0.4ML SYRINGE (J1650 PER 10MG) SC SCH (11:32)
[2023-09-14 11:35] VITALS: BP 132/63; TEMP 96.8; O2SAT 97
[2023-09-14 13:01] LABS: CK-MB VALUE MASS < 1.0 NG/ML (<3.6)
[2023-09-14 13:02] LABS: CPK CREATINE PHOSPHOKINASE 41 U/L (34-145); MB/CK RELATIVE INDEX 2.43 (< OR =4)
[2023-09-14 16:11] VITALS: BP 108/62; TEMP 97.7; O2SAT 96
[2023-09-14 17:10] VITALS: BP 113/55; TEMP 97.5; O2SAT 99
[2023-09-14] MEDS: ATORVASTATIN 20 MG TAB PO SCH (21:10)
[2023-09-14 21:17] VITALS: BP 125/60; TEMP 97.7; O2SAT 99
[2023-09-15 04:39] VITALS: BP 124/59; TEMP 97; O2SAT 100
[2023-09-15 06:10] LABS: HEMATOCRIT 35.2 % (36.0-47.0); HEMOGLOBIN 10.7 g/dl (12.0-15.5); MEAN CORPUSCULAR HGB CONC 30.4 g/dl (32.0-36.5); MEAN CORPUSCULAR VOLUME 85.6 fl (80.0-96.0); PLATELET COUNT, AUTOMATED 316 10^3/uL (150-450); RED BLOOD COUNT 4.11 10^6/uL (4.00-5.40); WHITE BLOOD COUNT 8.6 10^3/uL (4.0-10.0)
[2023-09-15 06:39] LABS: BLOOD UREA NITROGEN < 5 MG/DL (9-23); CALCIUM LEVEL 8.5 MG/DL (8.3-10.6); CARBON DIOXIDE LEVEL 26 MMOL/L (20-31); CHLORIDE LEVEL 108 MMOL/L (98-107); GLOMERULAR FILTRATION RATE > 60.0 (>45); GLUCOSE, FASTING 110 MG/DL (74-106); POTASSIUM SERUM 4.1 MMOL/L (3.5-5.1); SODIUM LEVEL 142 MMOL/L (136-145)
[2023-09-15 07:14] LABS: ATYPICAL LYMPH 25 % (0-5); EOSINOPHILS 3 % (0-3); LYMPHOCYTES 4 % (16-44); MONOCYTES 6 % (0-5); NEUTROPHILS 62 % (28-66); NUCLEATED RED BLOOD CELL 14 % (0-0)
[2023-09-15 07:20] LABS: PLATELET ESTIMATE NORMAL (NORMAL)
[2023-09-15 07:21] LABS: HYPOCHROMASIA 1+; POLYCHROMASIA 1+
[2023-09-15] MEDS: ASPIRIN 81MG CHEW TABLET PO SCH (08:30)
[2023-09-15] MEDS: CLOPIDOGREL 75 MG TAB PO SCH (08:30)
[2023-09-15] MEDS: LACTOBACILLUS ACIDOPHILUS CAP (BACID) PO SCH ×2 (08:30→13:07)
[2023-09-15] MEDS: AUGMENTIN 875 MG TAB PO SCH (08:30)
[2023-09-15] MEDS: ENOXAPARIN 40MG/0.4ML SYRINGE (J1650 PER 10MG) SC SCH (08:31)
[2023-09-15] MEDS ORDERED: AMOX875T2 PO (12:45)
[2023-09-15] MEDS ORDERED: ATOR1TAB21 PO (12:45)
[2023-09-15] MEDS ORDERED: ASPI81CH8 PO (12:45)
[2023-09-15] MEDS ORDERED: CLOP75TA2 PO (12:45)
== END 2023-09-15 14:35 | disposition home or self-care (01) | DRG 871 ==
LOC: EDBD 11:10 → M ED 11:10 → M ED INP 14:11 → M ICU 14:11 → UNDODISIN 09-11 12:56 → M PCU 09-12 12:43 → M MSPAV 09-14 17:03
PROVIDERS: ADMIT Internal Medicine Critical Care Medicine; ATTEND Student in an Organized Health Care Education/Training Program
PROC: 05HM33Z Insertion of Infusion Device into Right Internal Jugular Vein, Percutaneous Approach (ICD-10-PCS; principal; 2023-09-07)
DX: A41.9 Sepsis, unspecified organism (principal); R65.21 Severe sepsis with septic shock; I21.4 Non-ST elevation (NSTEMI) myocardial infarction; I21.A1 Myocardial infarction type 2; G92.8 Other toxic encephalopathy; N10 Acute pyelonephritis; I69.354 Hemiplegia and hemiparesis following cerebral infarction affecting left non-dominant side; E87.1 Hypo-osmolality and hyponatremia; I50.32 Chronic diastolic (congestive) heart failure; E03.9 Hypothyroidism, unspecified; E11.9 Type 2 diabetes mellitus without complications; I11.0 Hypertensive heart disease with heart failure; B96.1 Klebsiella pneumoniae [K. pneumoniae] as the cause of diseases classified elsewhere; E87.6 Hypokalemia; I25.10 Atherosclerotic heart disease of native coronary artery without angina pectoris; Z95.1 Presence of aortocoronary bypass graft; E78.5 Hyperlipidemia, unspecified; I27.20 Pulmonary hypertension, unspecified; K21.9 Gastro-esophageal reflux disease without esophagitis; Z88.8 Allergy status to other drugs, medicaments and biological substances; Z88.5 Allergy status to narcotic agent; Z79.82 Long term (current) use of aspirin; Z79.899 Other long term (current) drug therapy; Z95.0 Presence of cardiac pacemaker; Z86.718 Personal history of other venous thrombosis and embolism; M81.0 Age-related osteoporosis without current pathological fracture; I08.3 Combined rheumatic disorders of mitral, aortic and tricuspid valves; F32.A Depression, unspecified; Z87.891 Personal history of nicotine dependence

== ENCOUNTER → 2023-10-01 | Outpatient (CLI) | payer OTHER ==
[~2023-10-01] MED LIST changes: +ASPI81CH8 PO; +ATOR1TAB21 PO; +CLOP75TA2 PO; +PROA1AER2 INH; +ROSU20TA61 PO; +TRAM37.53 PO
[2023-10-01 15:01] LABS: ALBUMIN 3.1 G/DL (3.2-5.2); BILIRUBIN,DIRECT 0.3 MG/DL (<0.4); BILIRUBIN,TOTAL 0.8 MG/DL (0.3-1.2); TOTAL PROTEIN 7.4 G/DL (5.7-8.2)
== END ==
LOC: M LAB 13:46
PROVIDERS: ATTEND Registered Nurse
DX: B37.2 Candidiasis of skin and nail (principal)

== ENCOUNTER 2023-10-13 08:22 | Inpatient (IN) | payer OTHER ==
[2023-10-13] VITALS (41 sets, daily range): BP systolic 70–128; BP diastolic 48–63; TEMP 97.5–102.3; O2SAT 90–100
[~2023-10-13] VITALS: Ht 162.6 cm; Wt 91.4 kg
[2023-10-13] MEDS ORDERED: ASPIRIN 81MG ENTERIC TABLET PO SCH (09:00)
[2023-10-13] MEDS ORDERED: PANTOPRAZOLE 20 MG TAB PO SCH (09:00)
[2023-10-13] MEDS ORDERED: CLOPIDOGREL 75 MG TAB PO SCH (09:00)
[2023-10-13] MEDS ORDERED: TOPIRAMATE (TopAMAX) 25 MG TAB PO SCH (09:00)
[2023-10-13] MEDS ORDERED: PIPERACILLIN/TAZOBACTAM SOD 4.5 GM in D5W MINI-BAG PLUS 50 ML IV ONE (09:05)
[2023-10-13] MEDS ORDERED: cefTRIAXone SOD 2 GM in D5W MINI-BAG PLUS 50 ML IV ONE (09:05)
[2023-10-13] MEDS ORDERED: NS 2,750 ML in IV 1 EA IV ONE (09:20)
[2023-10-13 09:52] LABS: HEMATOCRIT 38.4 % (36.0-47.0); HEMOGLOBIN 12.3 g/dl (12.0-15.5); MEAN CORPUSCULAR HEMOGLOBIN 26.3 pg (27.0-33.0); MEAN CORPUSCULAR VOLUME 82.2 fl (80.0-96.0); PLATELET COUNT, AUTOMATED 281 10^3/uL (150-450); RED BLOOD COUNT 4.67 10^6/uL (4.00-5.40)
[2023-10-13 10:00] LABS: AMORPHOUS SEDIMENT SMALL (NEGATIVE); APPEARANCE, URINE TURBID (CLEAR); BACTERIA, URINE AUTO 3+ (NEGATIVE); BILIRUBIN, URINE AUTO NEGATIVE (NEGATIVE); BLOOD, URINE BLOOD 1+ (NEGATIVE); COLOR, URINE AMBER (YELLOW); GLUCOSE, URINE (UA) AUTO NEGATIVE (NEGATIVE); KETONE, URINE AUTO NEGATIVE (NEGATIVE); LEUKOCYTE ESTERASE, URINE AUTO 2+ (NEGATIVE); MUCUS, URINE SMALL (NEGATIVE); NITRITE, URINE AUTO NEGATIVE (NEGATIVE); PROTEIN, URINE AUTO 2+ mg/dL (NEGATIVE); RBC, URINE AUTO 7 /HPF (0-3); SPECIFIC GRAVITY URINE AUTO 1.018 (1.002-1.035); SQUAMOUS EPITHELIAL CELL UR AU 18 /HPF (0-6); UROBILINOGEN, URINE AUTO 0.2 mg/dL (0.0-2.0); WBC, URINE AUTO 85 /HPF (0-3)
[2023-10-13 10:04] LABS: WHITE BLOOD COUNT 36.1 10^3/uL (4.0-10.0)
[2023-10-13 10:18] LABS: RSV AMPLIFICATION NEGATIVE (NEGATIVE)
[2023-10-13 10:55] LABS: ATYPICAL LYMPH 4 % (0-5); LYMPHOCYTES 3 % (16-44); MONOCYTES 3 % (0-5); NEUTROPHILS 89 % (28-66)
[2023-10-13] MEDS ORDERED: ASPIRIN 81MG CHEW TABLET PO ONE (10:55)
[2023-10-13 10:56] LABS: PLATELET ESTIMATE NORMAL (NORMAL)
[2023-10-13 11:21] LABS: CK-MB VALUE MASS < 1.0 NG/ML (<3.6)
[2023-10-13 11:23] LABS: AMYLASE 36 U/L (30-118); CPK CREATINE PHOSPHOKINASE 116 U/L (34-145); MB/CK RELATIVE INDEX 0.86 (< OR =4)
[2023-10-13 11:28] LABS: ALBUMIN 2.1 G/DL (3.2-5.2); ALKALINE PHOSPHATASE 63 U/L (46-116); ALT/SGPT 12 U/L (7.0-40); AST/SGOT 14 U/L (<34); BILIRUBIN,DIRECT 0.3 MG/DL (<0.4); BILIRUBIN,TOTAL 0.6 MG/DL (0.3-1.2); BLOOD UREA NITROGEN 43 MG/DL (9-23); CALCIUM LEVEL 7.9 MG/DL (8.3-10.6); CARBON DIOXIDE LEVEL 17 MMOL/L (20-31); CHLORIDE LEVEL 102 MMOL/L (98-107); CREATININE FOR GFR 2.25 MG/DL (0.55-1.30); GLOMERULAR FILTRATION RATE 23.2 (>45); GLUCOSE, FASTING 109 MG/DL (74-106); POTASSIUM SERUM 4.7 MMOL/L (3.5-5.1); SODIUM LEVEL 131 MMOL/L (136-145); TOTAL PROTEIN 5.3 G/DL (5.7-8.2)
[2023-10-13 11:40] LABS: INR 1.38; PROTHROMBIN TIME 16.6 SECONDS (12.5-14.5)
[2023-10-13 11:41] LABS: PARTIAL THROMBOPLASTIN TIME 24.9 SECONDS (24.8-34.2)
[2023-10-13] MEDS ORDERED: NOREPINEPHRINE 4MG IN D5 250ML 4 MG in IV 1 EA IV SCH ×2 (11:45)
[2023-10-13] MEDS ORDERED: ALBUTEROL SULFATE 2.5MG/0.5ML INH NEB SOLN NEB PRN (11:55)
[2023-10-13] MEDS ORDERED: ONDANSETRON 4MG 2ML VIAL IV ONE (11:55)
[2023-10-13] MEDS ORDERED: LR 1,000 ML IV SCH (12:20)
[2023-10-13] MEDS ORDERED: CLOP75TA2 PO (12:28)
[2023-10-13] MEDS ORDERED: CLOT1CRE71 TOP (12:28)
[2023-10-13] MEDS ORDERED: ATOR1TAB21 PO (12:28)
[2023-10-13] MEDS ORDERED: NYST10006 TOP (12:28)
[2023-10-13] MEDS ORDERED: ASPI81CH33 PO (12:28)
[2023-10-13] MEDS ORDERED: VANCOMYCIN ORAL SOL 250MG/5ML ORAL SYRINGE PO SCH (12:30)
[2023-10-13] MEDS ORDERED: FLUC150T9 PO (12:31)
[2023-10-13] MEDS ORDERED: LACTATED RINGER'S 1000 ML IV ONE ×2 (14:00→16:50)
[2023-10-13] MEDS ORDERED: GLUCAGON INJ 1MG VIAL SC PRN (15:00)
[2023-10-13] MEDS ORDERED: DEXTROSE 50% 50ML SYRINGE IV PRN (15:00)
[2023-10-13] MEDS ORDERED: GLUCOSE 4GM CHEW TABLET PO PRN (15:00)
[2023-10-13] MEDS: FIDAXOMICIN 200 MG TAB (DIFICID) PO SCH ×2 (15:09→22:09)
[2023-10-13] MEDS: LEVOTHYROXINE 100MCG TABLET (0.1MG) PO SCH (15:09)
[2023-10-13] MEDS ORDERED: LR 500 ML IV ONE (16:35)
[2023-10-13] MEDS ORDERED: VASOPRESSIN INJ 20 UNITS in NS 499 ML IV SCH ×2 (16:35→17:00)
[2023-10-13 17:02] LABS: CALCIUM LEVEL 7.5 MG/DL (8.3-10.6); CREATININE FOR GFR 1.99 MG/DL (0.55-1.30); GLOMERULAR FILTRATION RATE 26.7 (>45); POTASSIUM SERUM 4.7 MMOL/L (3.5-5.1)
[2023-10-13 17:43] LABS: ABG BASE EXCESS -11.6 (-2.0-2.0); ABG HCO3 14.2 MMOL/L (22.0-26.0); ABG O2 SATURATION 98.5 % (95.0-99.0); ABG PARTIAL PRESSURE CO2 31.9 mmHg (35.0-45.0); ABG PARTIAL PRESSURE O2 125.7 mmHg (75.0-100.0); ABG STANDARD HCO3 15.4 MMOL/L. (22.0-26.0); ABG TOTAL CO2 15.2 MMOL/L (23.0-31.0); ABG pH (ARTERIAL) 7.266 UNITS (7.350-7.450)
[2023-10-13] MEDS: metroNIDAZOLE 500 MG in IV 1 EA IV SCH (17:44)
[2023-10-13] MEDS: INSULIN LISPRO (NovoLOG) PER UNIT SC SCH (18:00)
[2023-10-13] MEDS: NOREPINEPHRINE 4MG IN D5 250ML 4 MG in IV 1 EA IV SCH ×4 (20:15→22:20)
[2023-10-13] MEDS ORDERED: ATORVASTATIN 20 MG TAB PO SCH (21:00)
[2023-10-13] MEDS ORDERED: ACETAMINOPHEN *IV* 1,000 MG in IV 1 EA IV ONE (21:50)
[2023-10-13] MEDS: HEPARIN SOD (PORCINE) 5000UNITS/ML 1ML VIAL/SYRINGE SC SCH (22:10)
[2023-10-14] VITALS (62 sets, daily range): BP systolic 39–128; BP diastolic 25–89; TEMP 99.1–101.7; O2SAT 96–99
[2023-10-14] MEDS: metroNIDAZOLE 500 MG in IV 1 EA IV SCH (01:00)
[2023-10-14] MEDS: NOREPINEPHRINE 4MG IN D5 250ML 4 MG in IV 1 EA IV SCH ×6 (01:23→08:41)
[2023-10-14] MEDS: INSULIN LISPRO (NovoLOG) PER UNIT SC SCH ×2 (05:07)
[2023-10-14] MEDS: LEVOTHYROXINE 100MCG TABLET (0.1MG) PO SCH (05:07)
[2023-10-14] MEDS: HEPARIN SOD (PORCINE) 5000UNITS/ML 1ML VIAL/SYRINGE SC SCH (05:07)
[2023-10-14 05:28] LABS: HEMATOCRIT 37.2 % (36.0-47.0); HEMOGLOBIN 11.7 g/dl (12.0-15.5); MEAN CORPUSCULAR HEMOGLOBIN 26.1 pg (27.0-33.0); MEAN CORPUSCULAR HGB CONC 31.5 g/dl (32.0-36.5); PLATELET COUNT, AUTOMATED 293 10^3/uL (150-450); RED BLOOD COUNT 4.48 10^6/uL (4.00-5.40)
[2023-10-14 05:30] LABS: WHITE BLOOD COUNT 43.4 10^3/uL (4.0-10.0)
[2023-10-14 05:41] LABS: BILIRUBIN,TOTAL 0.5 MG/DL (0.3-1.2); CALCIUM LEVEL 7.4 MG/DL (8.3-10.6); CREATININE FOR GFR 2.33 MG/DL (0.55-1.30); GLOMERULAR FILTRATION RATE 22.2 (>45); POTASSIUM SERUM 4.2 MMOL/L (3.5-5.1); TOTAL PROTEIN 5.3 G/DL (5.7-8.2)
[2023-10-14] MEDS ORDERED: SODIUM BICARBONATE 150 MEQ in STERILE WATER LITER BAG 1,000 ML IV SCH (06:30)
[2023-10-14] MEDS ORDERED: HYDROCORTISONE 100MG/2ML VIAL IV ONE (06:40)
[2023-10-14] MEDS ORDERED: NS 500 ML IV ONE ×2 (06:50→07:40)
[2023-10-14] MEDS ORDERED: VASOPRESSIN INJ 20 UNITS in NS 499 ML IV SCH (08:00)
[2023-10-14] MEDS ORDERED: HEPARIN SOD (PORCINE) 5000UNITS/ML 1ML VIAL/SYRINGE IV PRN (08:55)
[2023-10-14] MEDS ORDERED: LACTATED RINGER'S 1000 ML IV ONE (08:55)
[2023-10-14] MEDS ORDERED: ACETAMINOPHEN *IV* 1,000 MG in IV 1 EA IV PRN (09:00)
[2023-10-14] MEDS ORDERED: ADENOSINE 6MG 2ML INJECTION As Ordered ONE ×2 (09:02→09:06)
[2023-10-14] MEDS ORDERED: SODIUM BICARBONATE 8.4% INJ 50ML SYRINGE ONE (09:29)
[2023-10-14] MEDS ORDERED: AMIODARONE 150MG/3ML VIAL ONE (09:29)
[2023-10-14] MEDS ORDERED: CALCIUM CHLORIDE 10% 1 GM/10 ML SYR ONE (09:29)
[2023-10-14] MEDS ORDERED: EPINEPHrine 1MG/10ML SYRINGE 1.5IN ONE (09:29)
[2023-10-14] MEDS ORDERED: HEPARIN SOD (PORCINE) 5000UNITS/ML 1ML VIAL/SYRINGE IV ONE (10:00)
[2023-10-14] MEDS ORDERED: PHENYLEPHRINE HCL INJ 50 MG in D5W 495 ML IV SCH (10:00)
[2023-10-14] MEDS ORDERED: HEPARIN DRIP 25,000 UNITS in IV 1 EA IV SCH (10:00)
[2023-10-14] MEDS ORDERED: HYDROCORTISONE 100MG/2ML VIAL IV SCH (12:00)
== END 2023-10-14 09:30 | disposition expired | DRG 871 ==
LOC: M ED 08:22 → EDBD 08:22 → M ED INP 11:53 → ENRESERV 12:33 → M ICU 12:59
PROVIDERS: ADMIT Internal Medicine Pulmonary Disease; ATTEND Internal Medicine Pulmonary Disease
PROC: 05HM33Z Insertion of Infusion Device into Right Internal Jugular Vein, Percutaneous Approach (ICD-10-PCS; principal; 2023-10-13)
PROC: 03H533Z Insertion of Infusion Device into Right Axillary Artery, Percutaneous Approach (ICD-10-PCS; 2023-10-14)
DX: A41.9 Sepsis, unspecified organism (principal); R65.21 Severe sepsis with septic shock; I21.4 Non-ST elevation (NSTEMI) myocardial infarction; I50.32 Chronic diastolic (congestive) heart failure; N17.9 Acute kidney failure, unspecified; A04.72 Enterocolitis due to Clostridium difficile, not specified as recurrent; I69.354 Hemiplegia and hemiparesis following cerebral infarction affecting left non-dominant side; K63.0 Abscess of intestine; J81.1 Chronic pulmonary edema; E87.5 Hyperkalemia; K21.9 Gastro-esophageal reflux disease without esophagitis; E03.9 Hypothyroidism, unspecified; I11.0 Hypertensive heart disease with heart failure; E11.9 Type 2 diabetes mellitus without complications; Z95.0 Presence of cardiac pacemaker; I25.10 Atherosclerotic heart disease of native coronary artery without angina pectoris; Z88.5 Allergy status to narcotic agent; Z88.8 Allergy status to other drugs, medicaments and biological substances; Z79.899 Other long term (current) drug therapy; M81.0 Age-related osteoporosis without current pathological fracture; E78.5 Hyperlipidemia, unspecified; I95.9 Hypotension, unspecified